=== PATIENT | female | born 2000 | race Hispanic/Latino ===

== ENCOUNTER 2021-04-16 02:09 | Emergency (ER) | payer OTHER ==
[2021-04-16] MEDS ORDERED: predniSONE 20 MG TAB ONE (02:56)
== END 2021-04-16 03:20 | disposition home or self-care (01) ==
LOC: CSHERS 02:09
DX: J18.9 Pneumonia, unspecified organism (principal)
CPT/HCPCS: 71045; 94640; 94760; J7512; J7620

== ENCOUNTER 2024-12-04 10:43 | Day surgery (SDC) | payer OTHER, MEDICAID ==
[2024-12-04 11:30] VITALS: BMI 34.8
== END 2024-12-04 12:50 | disposition home or self-care (01) ==
LOC: CSHLD/OP 10:43
PROVIDERS: ATTEND Obstetrics & Gynecology
DX: O47.03 False labor before 37 completed weeks of gestation, third trimester (principal); Z3A.36 36 weeks gestation of pregnancy; Z79.899 Other long term (current) drug therapy
CPT/HCPCS: 99283

== ENCOUNTER 2024-12-10 06:46 | Day surgery (SDC) | payer OTHER, MEDICAID ==
[2024-12-10 07:23] VITALS: BMI 34.8
[2024-12-10 07:57] LABS: Fetal Membranes Rupture No Membranes Rupture (No Rupture)
== END 2024-12-10 08:23 | disposition home health service (06) ==
LOC: CSHLD/OP 06:46
PROVIDERS: ATTEND Obstetrics & Gynecology
DX: Z03.71 Encounter for suspected problem with amniotic cavity and membrane ruled out (principal); O47.1 False labor at or after 37 completed weeks of gestation; O99.891 Other specified diseases and conditions complicating pregnancy; N89.8 Other specified noninflammatory disorders of vagina; Z3A.37 37 weeks gestation of pregnancy
CPT/HCPCS: 84112; 99284

== ENCOUNTER 2024-12-23 19:58 | Day surgery (SDC) | payer OTHER, MEDICAID ==
[2024-12-23] MEDS ORDERED: hydrALAZINE 20 MG/ML VIAL SLOW IVP PRN (23:18)
== END 2024-12-23 22:46 | disposition home or self-care (01) ==
LOC: CSHLD/OP 19:58
PROVIDERS: ATTEND Obstetrics & Gynecology
DX: O47.1 False labor at or after 37 completed weeks of gestation (principal); Z3A.39 39 weeks gestation of pregnancy; Z79.899 Other long term (current) drug therapy

== ENCOUNTER 2024-12-28 05:24 | Inpatient (IN) | payer OTHER, MEDICAID ==
[2024-12-28] MEDS ORDERED: Tranexamic Acid 1,000 MG/10 ML VIAL IVP PRN (05:35)
[2024-12-28] MEDS ORDERED: Ondansetron PF 4 MG/2 ML Vial IVP PRN ×2 (05:35→11:24)
[2024-12-28] MEDS ORDERED: Lidocaine 1% (PF) 30 ML VIAL SC PRN (05:35)
[2024-12-28] MEDS ORDERED: Methylergonovine 0.2 MG/ML VIAL IM PRN (05:35)
[2024-12-28] MEDS ORDERED: Acetaminophen 500 MG TAB PO PRN (05:35)
[2024-12-28] MEDS ORDERED: HYDROcodone/Acetaminophen 5/325 mg Tablet PO PRN (05:35)
[2024-12-28] MEDS ORDERED: Diphenoxylate HCl/Atropine Tablet PO PRN ×2 (05:35)
[2024-12-28] MEDS ORDERED: hydrALAZINE 20 MG/ML VIAL SLOW IVP PRN ×2 (05:35→21:12)
[2024-12-28] MEDS ORDERED: Carboprost 250 MCG/ML AMP IM PRN (05:35)
[2024-12-28] MEDS ORDERED: Oxytocin 30 units/NS 500 ML 500 ML IV SCH (05:35)
[2024-12-28] MEDS ORDERED: Acetaminophen 325 MG TAB PO PRN ×2 (05:35→11:24)
[2024-12-28] MEDS ORDERED: HYDROcodone/Acetaminophen 10/325 mg Tablet PO PRN (05:35)
[2024-12-28 05:40] VITALS: BMI 38.0
[2024-12-28 06:19] LABS: Hematocrit 34.6 % (34.9-44.5); Hemoglobin 12.1 g/dL (12.0-15.5); Mean Corpuscular Hemoglobin 30.9 pg (27.0-33.0); Mean Corpuscular Volume 88.3 fL (81.6-98.3); Platelet Count 176 10x3/uL (150-450); Red Blood Cell (RBC) Count 3.92 10x6/uL (3.90-5.03); White Blood Cell (WBC) Count 9.21 10x3/uL (3.5-10.5)
[2024-12-28] MEDS: Oxytocin 30 units/NS 500 ML 500 ML IV SCH (06:45)
[2024-12-28 06:53] LABS: Syphilis Antibody Index 0.06 S/CO (<1.00 Non-Reactive)
[2024-12-28 06:55] LABS: Hep B Surf Ag - L&D Non-Reactive S/CO (NonReactive)
[2024-12-28] MEDS: fentaNYL/Ropivacaine Epidural 100 ML ONE (09:18)
[2024-12-28] MEDS ORDERED: diphenhydrAMINE 50 MG/ML VIAL IVP PRN (11:24)
[2024-12-28] MEDS ORDERED: NO NARCS FOR 12 HOURS FS PRN (11:30)
[2024-12-28] MEDS ORDERED: fentaNYL 2 mcg/Ropivacaine 0.2% Epidural 100 ML CADD EPIDURAL SCH (11:30)
[2024-12-28] MEDS: Ibuprofen 800 MG TAB PO PRN (17:36)
[2024-12-28] MEDS ORDERED: Milk Of Magnesia 30 ML UDCUP PO PRN (21:12)
[2024-12-28] MEDS ORDERED: Bisacodyl 10 MG SUPP PR PRN (21:12)
[2024-12-28] MEDS: Ferrous Sulfate 325 MG TAB PO SCH (22:00)
[2024-12-29] MEDS: diphenhydrAMINE 25 MG CAP PO PRN (01:42)
[2024-12-29] MEDS: Ibuprofen 800 MG TAB PO SCH (01:42)
[2024-12-29] MEDS: Preparation H Ointment 28 GM TUBE PR PRN (04:18)
[2024-12-29] MEDS: Boostrix 0.5 ML (Tdap) VIAL (>/=7 yrs of age) IM ONE (07:29)
[2024-12-29] MEDS: Ferrous Sulfate 325 MG TAB PO SCH (07:29)
[2024-12-29 09:40] LABS: Influenza A by NAA Not Detected (NotDetected); Influenza B by NAA Not Detected (NotDetected); RSV by NAA Not Detected (NotDetected); SARS-CoV-2 NAA Rapid Test DETECTED (NotDetected)
[2024-12-29] MEDS ORDERED: Bupivacaine HCl 0.5%/Epinephrine 1:200,000/PF 30 ml Vial ONE (13:12)
[2024-12-29] MEDS ORDERED: Bupivacaine 0.25% HCL 30 ML VIAL ONE (13:12)
[2024-12-29] MEDS ORDERED: Lidocaine 2% MPF 10 ML AMP (For Epidural Use) ONE (13:12)
[2024-12-30 07:46] VITALS: BP 101/66; TEMP 97.9
== END 2024-12-30 13:45 | disposition home or self-care (01) | DRG 806 ==
LOC: CSHLD 05:24 → CSHPP 20:55
PROVIDERS: ADMIT Obstetrics & Gynecology; ATTEND Obstetrics & Gynecology
PROC: 10D07Z6 Extraction of Products of Conception, Vacuum, Via Natural or Artificial Opening (ICD-10-PCS; principal; 2024-12-28)
PROC: 4A1HXCZ Monitoring of Products of Conception, Cardiac Rate, External Approach (ICD-10-PCS; 2024-12-28)
PROC: 0UQGXZZ Repair Vagina, External Approach (ICD-10-PCS; 2024-12-28)
DX: O48.0 Post-term pregnancy (principal); O71.4 Obstetric high vaginal laceration alone; Z37.0 Single live birth; O99.892 Other specified diseases and conditions complicating childbirth; Z3A.40 40 weeks gestation of pregnancy
CPT/HCPCS: 36415; 51702; 85027; 86780; 86850; 86900; 86901; 87340; 87637; J0665; J2590; J7120